=== PATIENT | female | born 1995 | race Caucasian/White ===

== ENCOUNTER 2020-10-20 12:59 | Emergency (ER) | payer OTHER, SELFPAY ==
[2020-10-20 13:08] VITALS: BP 115/60; PULSE 52; RESP 16; TEMP 36.7; O2SAT 100
--- NOTE | 2020-10-20 14:09 | ED.URI ---
HPI - URI/Sore Throat General Chief Complaint: Upper Respiratory Infection Stated Complaint: Congestion, bodyaches, coughing Time Seen by Provider: 10/20/20 14:09 Source: patient Mode of arrival: ambulatory Limitations: no limitations History of Present Illness HPI Narrative: Bhavana Leos is a 25 yo female with no PMH [facility] swab for strep, flu, RSV as patient is congested and is ill. 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 EYES: Denies visual changes, redness, discharge. ENT: Has rhinorrhea, has congestion, sore throat, otalgia. CARDIOVASCULAR: Denies chest pain, palpitations, edema. RESPIRATORY: Denies dyspnea, wheezing, cough GASTROINTESTINAL: Denies abdominal pain, nausea, vomiting, diarrhea. GENITOURINARY: Denies dysuria, hematuria, abnormal discharge SKIN: Denies rash or itching. NEUROLOGIC: Denies numbness, or focal weakness. PSYCHIATRIC: Denies anxiety or depression. PMFSH Past Medical History Medical History No acute medical problems Social History Social History Smoking status: Never smoker Alcohol intake: current Comments At time of signature, I agree with nursing past medical, surgical, social and family history. There is no relevant family history pertinent to the presenting complaint. Exam Narrative: GENERAL: This is a well-nourished, well-developed patient, in mild distress. HEAD: normocephalic, atraumatic. EYES: Sclera clear/white. Vision is grossly intact. EARS: External ears normal, auditory canals clear and without drainage, TMs normal without perforation. Hearing grossly intact. NOSE: External nose normal with nasal discharge, nares with redness, has rhinorrhea. THROAT: Mucous membranes moist, posterior pharynx mild erythema no exudate NECK: Neck supple, non-tender CARDIOVASCULAR: Regular rate and rhythm without murmurs, gallops, or rubs. RESPIRATORY: Clear to auscultation. Breath sounds equal bilaterally. No wheezes, rales, or rhonchi. GASTROINTESTINAL: Abdomen soft, non-tender, SKIN: warm, intact with no suspicious lesions or rash, good texture and turgor. NEURO: awake, alert, and oriented to person, place and time. There were no obvious focal neurologic abnormalities. Steady gait EXTREMITIES: Normal range of motion. BACK: Nontender without deformity Course Course Emergency Course: Patient comes for evaluation of strep and flu so she can return to work Strep and flu test done - negative Recommend use of Mucinex and Flonase Return started to work Vital Signs Vital signs: Vital Signs Temperature 98.0 F 10/20/20 13:08 Pulse Rate 52 L 10/20/20 13:08 Respiratory Rate 16 10/20/20 13:08 Blood Pressure 115/60 10/20/20 13:08 Pulse Oximetry 100 10/20/20 13:08 Temperature 98.0 F 10/20/20 13:08 Pulse Rate 52 L 10/20/20 13:08 Respiratory Rate 16 10/20/20 13:08 Blood Pressure 115/60 10/20/20 13:08 Pulse Oximetry 100 10/20/20 13:08 MDM - URI/Sore Throat Differential Diagnosis Differential diagnosis: Likely upper respiratory infection, sinusitis, viral infection, pharyngitis and other Lab Data Labs: Influenza A Screen Negative Reference Range: Negative Influenza B Screen Negative Reference Range: Negative Strep Screen Presumptive Negative *(Refer
== END 2020-10-20 14:25 | disposition home or self-care (01) ==
PROVIDERS: Emergency Provider Nurse Practitioner
DX: J06.9 Acute upper respiratory infection, unspecified (principal)
CPT/HCPCS: 87081; 87420; 87804; 87880; 99203; G0463